=== PATIENT | male | born 2000 | race Caucasian/White ===

== ENCOUNTER → 2023-08-31 | Outpatient (CLI) | payer BC ==
[~2023-08-31] MED LIST: ACET325UDC; ACET650SUP PR; AMOCLA250S PO; AMOX50SU PO; AZIT100SU PO; CIPROFLOXACIN; CODACEE120 PO; CODGUAEL PO; COLD AND COUGH; ERYT.5TO OD; FLUO10 PO; HYDHOMSY PO; IBUP100S; MONT5TCH PO; NEOPOLHYDS OT; ONDA4 PO; ONDA4ODT MM; OTC MEDS; PEDIALAX; PRED10 PO; PROM12.5S PR; RXONDA4ODT MM; RXPROM12.S PR
== END ==
LOC: LAB 14:12 → LAB SHORT 14:12
DX: L08.9 Local infection of the skin and subcutaneous tissue, unspecified (principal)
CPT/HCPCS: 87070; 87075; 87076; 87185; 87205